=== PATIENT | male | born 2000 | race Caucasian/White ===

== ENCOUNTER 2021-11-17 21:06 | Emergency (ER) | payer OTHER ==
[~2021-11-17] VITALS: Ht 180.3 cm; Wt 86.2 kg
[~2021-11-17 21:06] MED LIST: ACTICIN 5% CREA60 G1 TOP; BACTROBAN CREAM30 GM TOP
[2021-11-17 21:12] VITALS: BP 142/72
[2021-11-17] MEDS ORDERED: CEPHALEXIN500 MG PO (21:17)
== END 2021-11-17 21:38 | disposition home or self-care (01) ==
LOC: M.ERS 21:06
DX: S61.412A Laceration without foreign body of left hand, initial encounter (principal); W31.89XA Contact with other specified machinery, initial encounter; Y93.89 Activity, other specified; Y92.89 Other specified places as the place of occurrence of the external cause; Y99.8 Other external cause status